=== PATIENT | female | born 1955 | race Caucasian/White ===

== ENCOUNTER 2018-12-12 02:53 | Emergency (ER) | payer OTHER ==
[~2018-12-12] VITALS: Ht 167.6 cm; Wt 72.3 kg
[2018-12-12] MEDS ORDERED: PRED20TA PO (03:41)
[2018-12-12] MEDS ORDERED: predniSONE 20 MG TAB PO ONE (03:45)
[2018-12-12 03:55] VITALS: BP 115/69
== END 2018-12-12 04:04 | disposition home or self-care (01) ==
LOC: M ED 02:53
DX: R22.0 Localized swelling, mass and lump, head (principal)